=== PATIENT | female | born 1980 | race African-American/Black ===

== ENCOUNTER 2016-12-22 23:47 | Emergency (ER) | payer MEDICAID ==
[~2016-12-22] VITALS: Ht 170.2 cm; Wt 63.5 kg
[~2016-12-22 23:47] MED LIST: IBUPROFEN200 MG ORAL
[2016-12-23 00:05] VITALS: BP 138/88
[2016-12-23] MEDS ORDERED: IBUPROFEN600 MG ORAL (00:20)
--- NOTE | 2016-12-23 00:21 | Emergency Room Report ---
History of Present Illness General Chief Complaint: General Complaint Source: Patient Present Illness HPI Is a 36-year-old female with no significant past medical history. She presents with chief complaint of tongue pain. She said she didn't hurt tongue couple months ago. Since then it has been hurting. She complaining of severe pain 10 out of 10 pain. Worse with swallowing. So worse with coughing. Allergies: Coded Allergies: NO KNOWN ALLERGIES (Unverified Allergy, Unknown, 07/01/15) Patient History Past Medical History: see triage record, old chart reviewed Past Surgical History: other Pertinent Family History: none Social History: Denies: smoking Last Menstrual Period: 12/02/16 Now: No Immunizations: other Reviewed Nursing Documentation: PMH: Agreed, PSxH: Agreed Nursing Documentation-PMH Past Medical History: No Stated History Review of Systems Eye: Denies: blurred vision, eye pain ENT: Denies: ear pain, nose congestion, throat swelling Respiratory: Denies: cough, shortness of breath Cardiovascular: Denies: chest pain, palpitations Gastrointestinal: Denies: abdominal pain, diarrhea, nausea, vomiting Musculoskeletal: Denies: back pain, joint pain Skin: Denies: rash Neurological: Denies: headache, numbness Endocrine: Denies: increased thirst, increased urine Hematologic/Lymphatic: Denies: easy bruising All Other Systems: negative except mentioned in HPI Physical Exam Vital Signs Date Time Temp Pulse Resp B/P Pulse Ox O2 Delivery O2 Flow Rate FiO2 12/22/16 23:54 97.9 99 16 141/88 100 Room Air vitals normal Sp02 EP Interpretation: reviewed, normal General Appearance: well appearing, no apparent distress, alert Head: normocephalic, atraumatic Eyes: bilateral eye EOMI, bilateral eye PERRL ENT: hearing grossly normal, normal pharynx, other - No dental injury. No evidence of active bleeding or trauma to the tongue Neck: full range of motion, supple, no meningismus Respiratory: chest non-tender, lungs clear, normal breath sounds Cardiovascular #1: regular rate, rhythm, no murmur Gastrointestinal: normal bowel sounds, non tender, no mass, no organomegaly, no bruit, non-distended Musculoskeletal: back normal, gait/station normal, normal range of motion Psychiatric: mood/affect normal Skin: warm/dry Medical Decision Making Diagnostic Impression: Primary Impression: Abrasion of tongue Qualified Codes: S00.512A - Abrasion of oral cavity, initial encounter ER Course I see no obvious trauma with this patient. No evidence of dental injury. No evidence of active tongue trauma. We'll discharge home. Last Vital Signs Date Time Temp Pulse Resp B/P Pulse Ox O2 Delivery O2 Flow Rate FiO2 12/23/16 00:05 97.9 80 16 138/88 100 Room Air Status: unchanged Disposition: HOME, SELF-CARE Condition: Stable Scripts Ibuprofen* (MOTRIN*) 600 Mg Tablet 600 MG ORAL THREE TIMES A DAY, #30 TAB 0 Refills Prov: MARKO GARCIA M.D. 12/23/16 Referrals: [facility],REFERRING (PCP) Additional Instructions: Followup with your DrCooper in 7 days. Return if worse. MARKO GARCIA M.D. Dec 23, 2016 00:20
[2016-12-23 00:35] VITALS: BP 138/88
== END 2016-12-23 00:35 | disposition home or self-care (01) ==
LOC: EMR 12-23 00:15
DX: S00.512A Abrasion of oral cavity, initial encounter (principal); X58.XXXA Exposure to other specified factors, initial encounter; Y92.89 Other specified places as the place of occurrence of the external cause
CPT/HCPCS: 99283